=== PATIENT | female | born 1990 | race American Indian/Alaskan Native ===

== ENCOUNTER 2016-12-16 21:24 | Emergency (ER) | payer MEDICAID ==
[2016-12-16 22:34] LABS: Alanine Aminotransferase 10 units/L (7-56); Albumin 4.2 g/dL (3.9-5); Albumin/Globulin Ratio 1.1 %; Alkaline Phosphatase 70 units/L (35-129); Anion Gap 18 mmol/L; Bilirubin,Total 0.3 mg/dL (0.1-1.2); Blood Urea Nitrogen 7 mg/dL (7-17); Calcium 9.1 mg/dL (8.4-10.2); Carbon Dioxide 25 mmol/L (22-30); Chloride 98.3 mmol/L (98-107); Glucose 130 mg/dL (65-100); Lipase 33 units/L (13-60); Potassium 3.2 mmol/L (3.6-5.0); Sodium 138 mmol/L (137-145); Total Protein 8.2 g/dL (6.3-8.2)
[2016-12-16 22:37] LABS: Basophils % (Auto) 0.4 % (0.0-1.8); Eosinophils % (Auto) 0.4 % (0.0-4.3); Hematocrit 34.3 % (30.3-42.9); Hemoglobin 11.2 gm/dl (10.1-14.3); Mean Corpuscular HGB Conc 33 % (30-34); Mean Corpuscular Volume 72 fl (79-97); Platelet Count 376 K/mm3 (140-440); Red Blood Count 4.75 M/mm3 (3.65-5.03); White Blood Count 4.8 K/mm3 (4.5-11.0)
[2016-12-16 22:38] LABS: Mean Corpuscular Hemoglobin 24 pg (28-32)
[2016-12-17 02:01] LABS: Bilirubin,Urine NEG (Negative); Blood,Urine LG (Negative); Ketones,Urine TR mg/dL (Negative); Leukocyte Esterase,Urine TR (Negative); Mucus,Urine 3+ /HPF; Nitrite,Urine NEG (Negative); Urobilinogen,Urine < 2.0 mg/dL (<2.0)
[2016-12-17 02:04] LABS: RBC,Urine > 182.0 /HPF (0.0-6.0)
[2016-12-17] MEDS ORDERED: MOTRIN PO ONE ×2 (02:58→03:01)
[2016-12-17] MEDS ORDERED: ZOFRAN ORAL LIQ PO ONE (02:59)
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
[2016-12-17] MEDS ORDERED: K-DUR PO ONE (03:00)
[2016-12-17] MEDS ORDERED: ZOFRAN ODT PO ONE (03:00)
[2016-12-17 05:47] VITALS: BP 115/76
== END 2016-12-17 05:45 | disposition home or self-care (01) ==
LOC: ED 21:24
DX: H66.001 Acute suppurative otitis media without spontaneous rupture of ear drum, right ear (principal); F17.200 Nicotine dependence, unspecified, uncomplicated
CPT/HCPCS: 36415; 80053; 81001; 83690; 84703; 85025; 87400; 99283; Q0162

== ENCOUNTER 2017-10-26 17:20 | Emergency (ER) | payer SELFPAY ==
[2017-10-26 18:02] VITALS: BP 97/48
== END 2017-10-27 04:31 | disposition left against medical advice (07) ==
LOC: ED 17:20
DX: J11.1 Influenza due to unidentified influenza virus with other respiratory manifestations (principal); Z53.21 Procedure and treatment not carried out due to patient leaving prior to being seen by health care provider

== ENCOUNTER 2017-11-04 10:57 | Emergency (ER) | payer SELFPAY ==
--- NOTE | 2017-11-04 19:31 | Emergency Department Report ---
Chief Complaint: Abdominal Pain Stated Complaint: , BLEEDING Time Seen by Provider: 11/04/17 19:26 - HPI History of Present Illness: believes she is 6 weeks , believes her LMP was sometime in July or August. She is having some vaginal bleeding, she used one pad, noticed blood everytime she wipes, bleeding started yesterday. She admits to abdominal cramping 3 days ago. Admits to nausea, vomiting, no diarrhea. She admits to smoking about 5 cigarettes a day. No ETOH. 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 No chest pain. - Exam Vital Signs: Vital Signs 11/04/17 11:54 Temperature 98.1 F Pulse Rate 68 Respiratory 16 Rate Blood Pressure 98/55 O2 Sat by Pulse 100 Oximetry Physical Exam: NAD NCAT CTA RRR NT ND +BS NO PEDAL EDEMA MSE screening note: Focused history and physical exam performed. Due to findings the following was ordered: Will get US OB < 14weeks, blood work, Rh status, UA. ED Disposition for MSE Condition: Stable Instructions: Abdominal Pain (ED) Referrals: PRIMARY CARE, [Primary Care Provider] - 3-5 Days
[2017-11-04 20:10] LABS: Basophils % (Auto) 0.6 % (0.0-1.8); Eosinophils # (Auto) 0.1 K/mm3 (0.0-0.4); Eosinophils % (Auto) 1.2 % (0.0-4.3); Hemoglobin 10.6 gm/dl (10.1-14.3); Lymphocytes # (Auto) 2.1 K/mm3 (1.2-5.4); Lymphocytes % (Auto) 27.2 % (13.4-35.0); Mean Corpuscular HGB Conc 32 % (30-34); Mean Corpuscular Volume 73 fl (79-97); Monocytes # (Auto) 0.6 K/mm3 (0.0-0.8); Monocytes % (Auto) 8.2 % (0.0-7.3); Platelet Count 338 K/mm3 (140-440); Red Blood Count 4.51 M/mm3 (3.65-5.03); Red Cell Distribution Width 19.1 % (13.2-15.2)
[2017-11-04 20:12] LABS: Mean Corpuscular Hemoglobin 23 pg (28-32)
[2017-11-04 20:13] LABS: BUN/Creatinine Ratio 15; Blood Urea Nitrogen 6 mg/dL (7-17); Calcium 9.4 mg/dL (8.4-10.2); Hemolysis Index 1
[2017-11-04 20:29] LABS: Bacteria,Urine 1+ /HPF (Negative); Bilirubin,Urine NEG (Negative); Blood,Urine NEG (Negative); Color,Urine Yellow (Yellow); Mucus,Urine 1+ /HPF; Nitrite,Urine POS (Negative); Protein,Urine <15 mg/dL mg/dL (Negative)
--- NOTE | 2017-11-04 20:49 | Ultrasound Report ---
FINAL REPORT EXAM: US OB TRANSVAGINAL HISTORY: Bleeding while TECHNIQUE: Ultrasound obstetrical transvaginal PRIORS: None. FINDINGS: There is gestational sac present within the uterus There is a pole present with crown-rump length of 0.8 centimeters estimated gestational age of 6 weeks 5 days. Estimated date of delivery June 25, 2018 A yolk sac is identified cardiac activity is present with heart rate of 137 beats per minute Right ovary is 7.3 x 7.2 x 4.3 centimeters Within the right ovary there is a simple appearing cyst 6.3 centimeters probable corpus luteum Left ovary is 3.4 x 1.7 x 1.8 centimeters No free fluid identified. No abnormal adnexal mass seen. IMPRESSION: Single live intrauterine gestation estimated at 6 weeks 5 days Right ovarian cyst probable corpus luteum
--- NOTE | 2017-11-04 20:50 | Ultrasound Report ---
FINAL REPORT EXAM: US OB < = 14 WEEKS FETUS HISTORY: bleeding while TECHNIQUE: Ultrasound obstetrical transabdominal PRIORS: None. FINDINGS: There is gestational sac present within the uterus There is a pole present with crown-rump length of 0.8 centimeters estimated gestational age of 6 weeks 5 days. Estimated date of delivery June 25, 2018 A yolk sac is identified cardiac activity is present with heart rate of 137 beats per minute Right ovary is 7.3 x 7.2 x 4.3 centimeters Within the right ovary there is a simple appearing cyst 6.3 centimeters probable corpus luteum Left ovary is 3.4 x 1.7 x 1.8 centimeters IMPRESSION: Single live intrauterine gestation estimated at 6 weeks 5 days
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
[2017-11-05 02:25] VITALS: BP 100/69
== END 2017-11-04 22:00 | disposition home or self-care (01) ==
LOC: ED 10:57
DX: O23.41 Unspecified infection of urinary tract in pregnancy, first trimester (principal); Z3A.08 8 weeks gestation of pregnancy
CPT/HCPCS: 36415; 76801; 76817; 80048; 81001; 84702; 85025; 86900; 86901; 87210; 87591; 99284

== ENCOUNTER 2018-06-09 18:03 | Outpatient (CLI) | payer MEDICAID, OTHER ==
[2018-06-09 18:48] VITALS: BP 94/51
== END 2018-06-09 20:00 | disposition home or self-care (01) ==
LOC: TRG 18:03 → LD 18:20 → TRG 18:30
PROVIDERS: ATTEND Obstetrics & Gynecology
DX: O47.03 False labor before 37 completed weeks of gestation, third trimester (principal); Z3A.37 37 weeks gestation of pregnancy; Z87.891 Personal history of nicotine dependence
CPT/HCPCS: 59025

== ENCOUNTER 2018-07-02 20:29 | Inpatient (IN) | payer OTHER ==
[2018-07-03] MEDS ORDERED: AMBIEN PO PRN
[2018-07-03 00:12] LABS: Hematocrit 39.8 % (30.3-42.9); Hemoglobin 13.3 gm/dl (10.1-14.3); Mean Corpuscular HGB Conc 34 % (30-34); Mean Corpuscular Hemoglobin 28 pg (28-32); Mean Corpuscular Volume 82 fl (79-97); Platelet Count 247 K/mm3 (140-440); Red Blood Count 4.85 M/mm3 (3.65-5.03)
[2018-07-03] MEDS ORDERED: BRETHINE IVP PRN (07:20)
[2018-07-03] MEDS ORDERED: XYLOCAINE 2% INFILTRATI NR (07:20)
[2018-07-03] MEDS ORDERED: BRETHINE SUB-Q PRN (07:20)
[2018-07-03] MEDS ORDERED: SUBLIMAZE IV PRN (07:20)
[2018-07-03] MEDS ORDERED: STADOL IV PRN (07:20)
[2018-07-03] MEDS ORDERED: POLYCILLIN/NS 2 GM/100 ML 2 GM/100 ML BAG IV ONE (08:00)
[2018-07-03] MEDS ORDERED: PITOCin/NS 20 UNIT/1000ML DRIP 20 UNITS/1,000 ML BAG IV SCH (08:00)
[2018-07-03] MEDS ORDERED: PITOCin/NS 30 UNIT/500ML 30 UNITS/500 ML BAG IV SCH (08:00)
[2018-07-03] MEDS: LACTATED RINGERS 1,000 ML IV SCH ×3 (08:06→13:50)
[2018-07-03] MEDS: PITOCin/NS 30 UNIT/500ML 30 UNITS/500 ML BAG IV SCH ×3 (08:22→10:02)
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
[2018-07-03] MEDS ORDERED: NARCAN 2 MG/2 ML IV PRN (12:13)
--- NOTE | 2018-07-03 12:13 | Anesthesia Consultation ---
Anesthesia Consult and Med Hx Date of service: 07/03/18 - Airway Anesthetic Teeth Evaluation: Good ROM Head & Neck: Adequate Mental/Hyoid Distance: Adequate Mallampati Class: Class II Intubation Access Assessment: Probably Good - Pre-Operative Health Status ASA Pre-Surgery Classification: ASA2 Proposed Anesthetic Plan: Epidural, Spinal - Pulmonary Hx Asthma: No COPD: No Hx Pneumonia: No - Cardiovascular System Hx Hypertension: No - Central Nervous System Hx Seizures: No Hx Psychiatric Problems: No - Endocrine Hx Renal Disease: No Hx End Stage Renal Disease: No Hx Hypothyroidism: No Hx Hyperthyroidism: No - Hematic Hx Anemia: No Hx Sickle Cell Disease: No - Other Systems Hx Alcohol Use: No
[2018-07-03] MEDS ORDERED: fentaNYL-BUPIV 2 MCG/ML-0.125% 200 MCG/100 ML BAG EPIDURAL SCH (13:00)
--- NOTE | 2018-07-03 16:05 | Procedure Note ---
OB Delivery Note - Delivery Date of Delivery: 07/03/18 ( 7-0oz male @ 1544) Surgeon: TELLO NAJERA Estimated blood loss: 100cc - Vaginal Delivery presentation: vertex Delivery position: OA Intrapartum events: none Delivery induction: AROM Delivery augmentation: pitocin Delivery monitor: external FHT, external uterine Route of delivery: Delivery placenta: spontaneous Delivery cord: 3 umbilical vessels Episiotomy: none Delivery laceration: none Anesthesia: epidural - A at 1 minute: 8 at 5 minutes: 9 Infant Gender: Male ( viable male, bulb suctioned and placed skin to skin. Cord blood collected. spont placenta. Pitocin infusing. Scant lochia. skid gloria at apex of vagina, not bleeding, not repaired.)
[2018-07-03] MEDS ORDERED: LANSINOH TP PRN (16:06)
[2018-07-03] MEDS ORDERED: TYLENOL PO PRN (16:06)
[2018-07-03] MEDS ORDERED: MILK OF MAGNESIA PO PRN (16:06)
[2018-07-03] MEDS ORDERED: TUCKS PAD TP PRN (16:06)
[2018-07-03] MEDS ORDERED: ZOFRAN IV PRN (16:06)
[2018-07-03] MEDS ORDERED: DULCOLAX PR PRN (16:06)
[2018-07-03] MEDS ORDERED: BENADRYL PO PRN (16:06)
[2018-07-03] MEDS ORDERED: PHENERGAN PO PRN (16:06)
[2018-07-03] MEDS: MOTRIN PO SCH ×2 (16:46→22:31)
[2018-07-03] MEDS ORDERED: SODIUM CHLORIDE FLUSH SYRINGE 10 ML IV SCH (17:00)
[2018-07-03] MEDS ORDERED: MINERAL OIL PO PRN (22:00)
[2018-07-04 04:52] LABS: Hematocrit 33.1 % (30.3-42.9); Hemoglobin 10.8 gm/dl (10.1-14.3)
[2018-07-04] MEDS: NORCO 5/325 PO PRN ×3 (05:11→21:47)
[2018-07-04] MEDS: MOTRIN PO SCH ×3 (06:31→23:28)
[2018-07-04] MEDS ORDERED: MOTRIN PO SCH (08:22)
--- NOTE | 2018-07-04 08:23 | Progress Note ---
Assessment and Plan A: PPD#1 s/p at term; Suboptimal pain control P: Increase Motrin to 800 mg per dose Routine care Anticipate discharge tomorrow Subjective - Subjective Date of service: 07/04/18 Principal diagnosis: s/p at term Interval history: Pt reports poor pain control overnight with painful cramping. Otherwise no complaints. Patient reports: appetite normal, voiding normally, pain poorly controlled, ambulating normally, no dizzy ambulation [place]: doing well Objective - Vital Signs Latest vital signs: Vital Signs Temp Pulse Resp BP BP Pulse Ox 07/04/18 06:31 18 07/04/18 06:11 18 07/04/18 05:11 20 07/04/18 04:40 98.6 F 62 18 108/56 07/04/18 00:00 98.4 F 62 18 98/66 07/03/18 23:31 16 07/03/18 17:38 97.8 F 71 16 99/63 99 07/03/18 17:01 72 109/65 07/03/18 16:46 61 106/62 07/03/18 16:31 67 111/64 07/03/18 16:16 72 111/66 07/03/18 15:22 91 H 109/72 07/03/18 15:17 85 100 07/03/18 15:12 89 100 07/03/18 15:07 91 H 100 07/03/18 15:02 85 100 07/03/18 14:57 96 H 100 07/03/18 14:52 86 100 07/03/18 14:47 96 H 100 07/03/18 14:42 97 H 99 07/03/18 14:37 116 H 100 07/03/18 14:32 88 100 07/03/18 14:27 98 H 100 07/03/18 14:22 98 H 84/52 100 07/03/18 14:17 97 H 100 07/03/18 14:12 83 100 07/03/18 14:07 64 100 07/03/18 14:02 68 100 07/03/18 13:57 82 100 07/03/18 13:52 81 100 07/03/18 13:47 80 100 07/03/18 13:42 65 100 07/03/18 13:37 68 100 07/03/18 13:32 68 100 07/03/18 13:27 90 99 07/03/18 13:23 65 97/57 07/03/18 13:22 79 98 07/03/18 13:17 69 99 07/03/18 13:12 78 98 07/03/18 13:07 75 100 07/03/18 13:02 68 98 07/03/18 12:57 66 100 07/03/18 12:52 62 98 07/03/18 12:47 84 97 07/03/18 12:42 62 97 07/03/18 12:37 65 98 07/03/18 12:32 68 98 07/03/18 12:27 67 97 07/03/18 12:22 69 98 07/03/18 12:19 67 101/61 07/03/18 12:17 71 97 07/03/18 12:16 67 0 L 07/03/18 12:15 62 101/64 07/03/18 12:03 74 81 L 07/03/18 12:00 67 100 07/03/18 11:59 65 100/61 07/03/18 11:55 73 100 07/03/18 11:54 74 85 07/03/18 09:36 16 Intake and Output 07/03/18 07/04/18 07/04/18 22:59 06:59 14:59 Intake Total 125 Balance 125 Intake: IV 125 Right Wrist 125 Other: Estimated Blood Loss 100 - Exam Breasts: Present: deferred Cardiovascular: Present: Regular rate Lungs: Present: Clear to auscultation Abdomen: Present: soft Uterus: Present: fundal height at umbilicus Extremities: Present: normal
--- NOTE | 2018-07-04 08:28 | Discharge Summary ---
Providers - Providers Date of Admission: 07/02/18 20:29 Date of discharge: 07/05/18 Attending physician: NABIL JAY Primary care physician: SACHA NAPIER MD Hospitalization Reason for admission: induction of labor Delivery: Procedure details: Please see delivery note. Episiotomy: none Laceration: none Other procedures: none complications: none Discharge diagnosis: IUP at term delivered baby: male Hospital course: Pt was admitted for induction of labor and went on to have a spontaneous vaginal delivery which she tolerated well. Her course was uncomplicated and she met discharge criteria on PPD#2. She will follow up in the office in 4 wks. Condition at discharge: Stable Disposition: DC-01 TO HOME OR SELFCARE - Discharge Diagnoses (1) Term of male Status: Acute Plan - Discharge Medications Prescriptions: Ferrous Sulfate [Feosol 325 MG tab] 325 mg PO BID #60 tablet HYDROcodone/ACETAMINOPHEN [[place] 5-325 Tablet] 1 each PO Q6H PRN #30 tablet PRN Reason: Pain , Severe (7-10) Ibuprofen [Motrin] 800 mg PO Q8HR PRN #30 tablet PRN Reason: Pain, Moderate (4-6) - Provider Discharge Summary Activity: routine, no sex for 6 weeks, no heavy lifting 4 weeks, no strenuous exercise Diet: routine Instructions: routine Additional instructions: [] Smoking cessation referral if applicable(refer to patient education folder for contact #) [] Refer to [facility]'s [facility] Booklet Call your doctor immediately for: * Fever > 100.5 * Heavy vaginal bleeding ( >1 pad per hour) * Severe persistent headache * Shortness of breath * Reddened, hot, painful area to leg or breast * Drainage or odor from incision. * Keep incision clean and dry at all times and follow doctor's instructions regarding bathing/showering - Follow up plan Follow up: SACHA NAPIER MD [Primary Care Provider] - 07/31/18 (Please schedule appt )
[2018-07-04] MEDS: PRENATAL VITAMIN PO SCH (11:16)
[2018-07-05] MEDS: NORCO 5/325 PO PRN (03:33)
[2018-07-05] MEDS: MOTRIN PO SCH ×2 (05:16→12:01)
[2018-07-05] MEDS: PRENATAL VITAMIN PO SCH (09:38)
[2018-07-05 12:50] VITALS: BP 102/69
== END 2018-07-05 13:10 | disposition home or self-care (01) | DRG 774 ==
LOC: LD 20:29 → OB 07-03 17:50
PROVIDERS: ADMIT Obstetrics & Gynecology; ATTEND Obstetrics & Gynecology
PROC: 10E0XZZ Delivery of Products of Conception, External Approach (ICD-10-PCS; principal; 2018-07-03)
PROC: 10907ZC Drainage of Amniotic Fluid, Therapeutic from Products of Conception, Via Natural or Artificial Opening (ICD-10-PCS; 2018-07-03)
PROC: 3E0R3BZ Introduction of Anesthetic Agent into Spinal Canal, Percutaneous Approach (ICD-10-PCS; 2018-07-03)
PROC: 00HU33Z Insertion of Infusion Device into Spinal Canal, Percutaneous Approach (ICD-10-PCS; 2018-07-03)
DX: O48.0 Post-term pregnancy (principal); O98.52 Other viral diseases complicating childbirth; Z3A.41 41 weeks gestation of pregnancy; Z37.0 Single live birth; B00.9 Herpesviral infection, unspecified; Z79.899 Other long term (current) drug therapy
CPT/HCPCS: 36415; 85014; 85018; 85027; 86592; 86850; 86900; 86901; J0290; J2590; J3010; J7120

== ENCOUNTER 2021-10-30 01:11 | Inpatient (IN) | payer OTHER ==
[2021-10-30] MEDS ORDERED: BUTORPHANOL 2 MG/1 ML INJ IV PRN (01:15)
[2021-10-30] MEDS ORDERED: ePHEDrine SULFATE 50 MG/1 ML INJ IV PRN (01:15)
[2021-10-30] MEDS ORDERED: fentaNYL 100 MCG/2 ML INJ IV PRN (01:15)
[2021-10-30] MEDS ORDERED: ONDANSETRON 4 MG/2 ML INJ IV PRN (01:15)
[2021-10-30] MEDS ORDERED: AMPICILLIN/NS 2 GM/100 ML 2 GM/100 ML BAG IV ONE ×2 (01:15→01:16)
[2021-10-30] MEDS ORDERED: ACETAMINOPHEN 325 MG TAB PO PRN (01:15)
[2021-10-30] MEDS ORDERED: TERBUTALINE 1 MG/1 ML INJ SUB-Q PRN (01:15)
[2021-10-30] MEDS ORDERED: LIDOCAINE (2%) 20 MG/1 ML VIAL 20 ML MDV INFILTRATI ONE (01:15)
[2021-10-30] MEDS ORDERED: CARBOPROST TROMETHAMINE 250 MCG/1 ML INJ IM PRN (01:15)
[2021-10-30] MEDS ORDERED: miSOPROStol 200 MCG TAB PR PRN (01:15)
[2021-10-30] MEDS ORDERED: NalbUPHINE 10 MG/1 ML INJ IV PRN (01:15)
[2021-10-30] MEDS ORDERED: LOPERAMIDE 2 MG CAP PO PRN (01:15)
[2021-10-30] MEDS ORDERED: OXYTOCIN 10 UNIT/1 ML INJ IM PRN (01:15)
[2021-10-30] MEDS ORDERED: LACTATED RINGERS 1,000 ML IV SCH (01:15)
[2021-10-30] MEDS ORDERED: MINERAL OIL 30 ML ORAL LIQD PO PRN (01:15)
[2021-10-30] MEDS ORDERED: METHYLERGONOVINE MALEATE 0.2 MG/ML VIAL IM PRN (01:15)
[2021-10-30 01:50] LABS: Hematocrit 39.2 % (30.3-42.9); Hemoglobin 12.6 gm/dl (10.1-14.3); Mean Corpuscular HGB Conc 32 % (30-34); Mean Corpuscular Volume 85 fl (79-97); Platelet Count 206 K/mm3 (140-440); Red Blood Count 4.62 M/mm3 (3.65-5.03)
[2021-10-30] MEDS ORDERED: OXYTOCIN DRIP 30 UNITS/500 ML BAG IV SCH ×2 (02:00)
[2021-10-30 02:02] LABS: Red Cell Distribution Width 26.9 % (13.2-15.2)
[2021-10-30] MEDS ORDERED: PROMETHAZINE 25 MG TAB PO PRN (02:29)
[2021-10-30] MEDS ORDERED: MAGNESIUM HYDROXIDE (MOM) ORAL LIQD UDC PO PRN (02:29)
[2021-10-30] MEDS ORDERED: WITCH HAZEL/ GLYCERIN PAD TP PRN (02:29)
[2021-10-30] MEDS ORDERED: diphenhydrAMINE 25 MG CAP PO PRN (02:29)
[2021-10-30] MEDS ORDERED: LANOLIN/ZINC/DIMETHICONE (LANSINOH) 7 GM TP PRN (02:29)
--- NOTE | 2021-10-30 02:38 | History and Physical Report ---
History of Present Illness Date of examination: 10/30/21 Date of admission: 10/30/21 01:15 Chief complaint: Precipitous History of present illness: 31 yo, @ 40.3 wks, initiated care with [facility] at 21.2 wks gestation. was complicated by trichomonas, HSV2, late entry to care and lapse in care from 31-37 wks. She presents to [facility] with reports of "my water broke" and found to have cervical dilation of 4cm. Reports +FM and clear fluids. Denies any VB. Labs: O+, antibody negative; rubella immune; VDRL negative; urine culture negative; HBsAg negative; HIV negative; GC/Chlamydia negative; 1 hr gtt 105; GBS positive. 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 denies: alcohol abuse, prescription drug abuse, IV drug use - Obstetrical History Expected Date of Delivery: 10/27/21 Actual Gestation: 40 Week(s) 3 Day(s) : 4 Para: 3 Hx # Term Pregnancies: 3 Number of Pregnancies: 0 Spontaneous Abortions: 0 Induced : 0 Number of Living Children: 3 #1 Infant Gender: Male year: 2,011 Birthweight: 3.941 kg Method of Delivery: Vaginal Gestational age at delivery: 40 Complications: none #2 Infant Gender: Female year: 2,013 Birthweight: 3.487 kg Method of Delivery: Vaginal Gestational age at delivery: 40 Complications: none #3 Gender: Male year: 2,018 Birthweight: 3.175 kg Method of Delivery: Vaginal Gestational age at delivery: 40 Complications: none Medications and Allergies Allergies Allergy/AdvReac Type Severity Reaction Status Date / Time No Known Allergies Allergy Verified 06/09/18 18:49 Home Medications Medication Instructions Recorded Confirmed Last Taken Type 21/Iron Fu/Folic Acid 1 each PO QDAY #30 tablet 11/04/17 06/09/18 06/08/18 20:00 Rx [ Complete Caplet] 1 Ferrous Sulfate [Feosol 325 MG tab] 325 mg PO BID #60 tablet 07/04/18 Unknown Rx HYDROcodone/ACETAMINOPHEN [[place] 1 each PO Q6H PRN #30 tablet 07/04/18 Unknown Rx 5-325 Tablet] Ibuprofen [Motrin] 800 mg PO Q8HR PRN #30 tablet 07/04/18 Unknown Rx Active Meds: Active Medications Acetaminophen (Acetaminophen 325 Mg Tab) 650 mg PO Q4H PRN PRN Reason: Pain, Mild (1-3) Butorphanol Tartrate (Butorphanol 2 Mg/1 Ml Inj) 2 mg IV Q2H PRN PRN Reason: Pain , Severe (7-10) Carboprost Tromethamine (Carboprost Tromethamine 250 Mcg/1 Ml Inj) 250 mcg IM ONCE PRN PRN Reason: Uterine Bleeding Ephedrine Sulfate (Ephedrine Sulfate 50 Mg/1 Ml Inj) 10 mg IV Q2M PRN PRN Reason: Hypotension Fentanyl (Fentanyl 100 Mcg/2 Ml Inj) 100 mcg IV Q2H PRN PRN Reason: Pain,Severe (7-10) LABOR PAIN Oxytocin/Sodium Chloride (Pitocin/Ns 30 Unit/500ml) 30 units in 500 mls @ 2 mls/hr IV TITR ARLYN; Protocol Lactated Ringer's (Lactated Ringers) 1,000 mls @ 125 mls/hr IV DIRECT ARLYN Oxytocin/Sodium Chloride (Pitocin/Ns 30 Unit/500ml) 30 units in 500 mls @ 40 mls/hr IV TITR ARLYN; Protocol Loperamide HCl (Loperamide 2 Mg Cap) 2 mg PO ONCE PRN PRN Reason: give with Hemabate Methylergonovine Maleate (Methylergonovine Maleate 0.2 Mg/Ml Vial) 0.2 mg IM ONCE PRN PRN Reason: Uterine Bleeding Mineral Oil (Mineral Oil 30 Ml Oral Liqd) 30 ml PO QHS PRN PRN Reason: Constipation Misoprostol (Misoprostol 200 Mcg Tab) 800 mcg [place] ONCE PRN PRN Reason: Uterine Bleeding Nalbuphine HCl (Nalbuphine 10 Mg/1 Ml Inj) 10 mg IV Q2H PRN PRN Reason: Pain, Moderate (4-6) Ondansetron HCl (Ondansetron 4 Mg/2 Ml Inj) 4 mg IV Q8H PRN PRN Reason: Nausea And Vomiting Oxytocin (Oxytocin 10 Unit/1 Ml Inj) 10 unit IM ONCE PRN PRN Reason: Uterine Bleeding Terbutaline Sulfate (Terbutaline 1 Mg/1 Ml Inj) 0.25 mg SUB-Q ONCE PRN PRN Reason: Hyperstimulation/Hypertonicity Review of Systems Genitourinary: other (vaginal abrasions) - Vital Signs Vital signs: Vital Signs Pulse Resp BP Pulse Ox 78 14 107/80 99 10/30/21 01:14 10/30/21 01:14 10/30/21 01:14 10/30/21 01:14 Temp Pulse Resp BP Pulse Ox 74 14 120/70 100 10/30/21 02:27 10/30/21 01:14 10/30/21 02:19 10/30/21 02:27 - Physical Exam Breasts: Positive: normal Cardiovascular: Regular rate Lungs: Positive: Normal air movement Abdomen: Positive: soft Genitourinary (Female): Positive: other (vaginal abrasions) Uterus: Positive: enlarged (U-2) Extremities: Positive: normal Deep Tendon Reflex Grade: Normal +2 Results Result Diagrams: 10/30/21 01:36 Abnormal lab results 10/30/21 Range/Units 01:36 MCH 27 L (28-32) pg RDW 26.9 H (13.2-15.2) % All other labs normal. Assessment and Plan - Patient Problems (1) Term of male Current Visit: No Status: Acute Plan to address problem: Transfer to M/B Pain meds as desired per orders Anticipate d/c home in 48 hrs (2) Cigarette smoker Current Visit: Yes Status: Acute
--- NOTE | 2021-10-30 02:49 | Procedure Note ---
OB Delivery Note - Delivery Date of Delivery: 10/30/21 (0147) Surgeon: QUINTON MANSFIELD (CNM) Estimated blood loss: 200cc - Vaginal Delivery presentation: vertex Delivery position: OA Intrapartum events: none Delivery induction: none Delivery augmentation: rupture of membranes (SROM @ 2330 on 10/29/2021, clear) Delivery monitor: external FHT, external uterine Route of delivery: Delivery placenta: spontaneous Delivery cord: 3 umbilical vessels Episiotomy: none Delivery laceration: none Anesthesia: none Delivery comments: Precipitous delivery of viable male placed directly to maternal abdomen. Cord double clamped and cut by RN. Cord blood collected, sent to lab. Placenta spontaneously delivered, disposed per hospital policy. Uterus firm @ U-2, hemostasis maintained. Perineum intact. Mother and baby safe, stable and left in care of RN. - A at 1 minute: 8 at 5 minutes: 9 Infant Gender: Male (Weight: 3685 gms (8lbs 2ozs) 20.5 inches)
[2021-10-30] MEDS: IBUPROFEN 600 MG TAB PO SCH ×4 (03:11→23:10)
[2021-10-30] MEDS: oxyCODONE /ACETAMINOPHEN 5-325MG TAB PO PRN ×3 (06:43→23:11)
[2021-10-30] MEDS: PRENATAL VIT27-FE FUMARATE-FOLIC ACID VIT TAB PO SCH (09:29)
[2021-10-30 16:03] LABS: Hematocrit 37.1 % (30.3-42.9); Hemoglobin 11.7 gm/dl (10.1-14.3)
[2021-10-31] MEDS: IBUPROFEN 600 MG TAB PO SCH ×5 (03:11→20:40)
[2021-10-31] MEDS: oxyCODONE /ACETAMINOPHEN 5-325MG TAB PO PRN ×2 (09:27→18:17)
[2021-10-31] MEDS: PRENATAL VIT27-FE FUMARATE-FOLIC ACID VIT TAB PO SCH (09:27)
--- NOTE | 2021-10-31 17:52 | Progress Note ---
Assessment and Plan day 1 status post doing well. Plan for discharge on tomorrow Subjective - Subjective Date of service: 10/31/21 Principal diagnosis: Status post Interval history: Patient a 31-year-old female who presented on the morning of October 30, 2021 and had a precipitous delivery. Patient is GBS positive, therefore she will need to stay for 48 hours secondary to untreated GBS. She has no complaints. Patient reports: appetite normal, voiding normally, pain well controlled, ambulating normally : doing well Objective - Vital Signs Latest vital signs: Vital Signs Temp Pulse Resp BP BP Pulse Ox Pulse Ox 10/31/21 15:37 98.6 F 69 18 92/52 96 10/31/21 08:00 98 10/31/21 07:48 98.1 F 68 18 94/60 97 10/31/21 01:50 98.1 F 69 20 100/69 99 10/31/21 00:10 98 10/30/21 23:11 18 99 10/30/21 20:30 98.2 F 82 20 104/62 98 10/30/21 19:30 98 Intake and Output 10/31/21 10/31/21 10/31/21 06:59 14:59 22:59 Intake Total 2480 240 1080 Balance 2480 240 1080 Intake: Oral 2480 240 480 Intake, Free Water 600 Other: Total, Intake Amount 2120 240 480 # Voids Void 1 1 2 - Exam Breasts: Present: deferred Cardiovascular: Present: Regular rate, Normal S1, Normal S2 Lungs: Present: Clear to auscultation, Normal air movement Abdomen: Present: normal appearance, soft, normal bowel sounds Vulva: both: normal Uterus: Present: normal, firm Extremities: Present: normal
--- NOTE | 2021-10-31 17:55 | Discharge Summary ---
Providers - Providers Date of Admission: 10/30/21 01:15 Date of discharge: 11/01/21 Attending physician: NABIL JAY 10/30/21 02:31 Consult to [employer] [CONS] Routine Reason For Exam: assistance with , SNS Primary care physician: NABIL JAY Hospitalization Reason for admission: active labor Delivery: Other procedures: none complications: none Discharge diagnosis: IUP at term delivered [place] baby: male Hospital course: Hold for inadequate GBS treatment Condition at discharge: Stable Disposition: 01 HOME / SELF CARE / HOMELESS Plan - Discharge Medications Prescriptions: Ibuprofen [Motrin] 800 mg PO Q8HR PRN #40 tablet PRN Reason: Pain, Mild (1-3) HYDROcodone/[place] 5-325 [[place] 5/325] 1 each PO Q6HR PRN #15 tablet PRN Reason: Pain - Provider Discharge Summary Activity: routine, no sex for 6 weeks, no heavy lifting 4 weeks, no strenuous exercise Diet: routine Instructions: routine Additional instructions: [] Smoking cessation referral if applicable(refer to patient education folder for contact #) [] Refer to [facility]'s [facility] Booklet Call your doctor immediately for: * Fever > 100.5 * Heavy vaginal bleeding ( >1 pad per hour) * Severe persistent headache * Shortness of breath * Reddened, hot, painful area to leg or breast * Drainage or odor from incision. * Keep incision clean and dry at all times and follow doctor's instructions regarding bathing/showering - Follow up plan Follow up: NABIL JAY MD [Primary Care Provider] - 6 Weeks
[2021-11-01] MEDS: IBUPROFEN 600 MG TAB PO SCH ×2 (05:30→14:06)
[2021-11-01] MEDS: PRENATAL VIT27-FE FUMARATE-FOLIC ACID VIT TAB PO SCH (10:11)
[2021-11-01 11:55] VITALS: BP 106/73
== END 2021-11-01 14:55 | disposition home or self-care (01) | DRG 774 ==
LOC: TRG 01:11 → LD 01:12 → TRG 01:15 → OB 04:48
PROVIDERS: ADMIT Obstetrics & Gynecology; ATTEND Obstetrics & Gynecology
PROC: 10E0XZZ Delivery of Products of Conception, External Approach (ICD-10-PCS; principal; 2021-10-30)
DX: O99.334 Smoking (tobacco) complicating childbirth (principal); O98.32 Other infections with a predominantly sexual mode of transmission complicating childbirth; Z37.0 Single live birth; Z3A.40 40 weeks gestation of pregnancy; Z20.822 Contact with and (suspected) exposure to COVID-19; A60.00 Herpesviral infection of urogenital system, unspecified; F17.210 Nicotine dependence, cigarettes, uncomplicated; O99.824 Streptococcus B carrier state complicating childbirth
CPT/HCPCS: 36415; 85014; 85018; 85027; 86592; 86850; 86900; 86901; G0378; J0290; U0003